=== PATIENT | female | born 1975 | race African-American/Black ===

== ENCOUNTER → 2021-04-14 | Outpatient (CLI) | payer OTHER ==
[~2021-04-14] MED LIST: ACETAMINOPHEN-1 EAC1; AEROECLIPSE1 EACH; ALBUTEROL2.5 MG/31; ASTELIN30 ML NS; CLOBETASOL PROP60 G3; DEPO-PROVER150 MG/M1 IM; EPIPEN0.3 MG/0.3; FLINTSTONES T100 MCG PO; FOLIC ACID PO; HYDROCHLOROTHIA25 M2; HYDROCODONE-AP1 EAC6 PO; HYDROXYCHLOROQ200 M1 PO; LOPRESSOR50 PO; LORTAB 5 MG/5001 TA1 PO; MIGRANAL1 ML NS; NAPROSYN500 MG PO; NAPROXEN DELAY500 M1; NORCO 5-325 TA1 EACH PO; ORADENT 0.1% DEN5 G1 TOP; PHENTERMINE H37.5 MG; PREDNISONE 20 M20 M1 PO; PRENATAL COMPL1 EACH PO; PROMS25 WY RECTAL; RANITIDINE HCL300 M1; SINGULAIR 10 MG10 M1 PO; SYMBICORT160 MCG/4. INH; TOPAMAX50 MG PO; ULTRAM 50MG TAB50 MG; ZECUITY TD; ZOFRAN4 MG PO; ZYRTEC 10 MG TA10 M1
== END ==
LOC: RAD 15:33
PROVIDERS: ATTEND Nurse Practitioner
DX: M54.16 Radiculopathy, lumbar region (principal); M54.2 Cervicalgia